=== PATIENT | female | born 2000 | race African-American/Black ===

== ENCOUNTER 2021-07-15 18:41 | Emergency (ER) | payer OTHER ==
[2021-07-15] MEDS ORDERED: Dicyclomine 20 MG/2 ML VIAL ONE (19:41)
[2021-07-15] MEDS ORDERED: Ondansetron ODT 4 MG TAB ONE (19:42)
[2021-07-15 20:04] LABS: Bilirubin Neg (Negative); Blood, Urine Negative (Negative); Clarity Clear (Clear); Glucose, Urine (Dipstick) Normal (Negative); Ketone, Urine Negative (Negative); Leukocyte Negative (Negative); Nitrite Negative (Negative); Protein, Urine (Dipstick) Negative (Neg-Trace); Specific Gravity, Urine 1.005 (1.002-1.036); Urobilinogen Normal mg/dL (Less than 2)
[2021-07-15 20:10] LABS: Pregnancy Test - Urine (BHCG) Negative (Negative); Pregu Control Background? CLEAR/WHITE (CLR/WHITE); Pregu Control Bar Appear? YES (CONTROL BAR); Specific Gravity 1.005 (1.002-1.036)
== END 2021-07-15 21:24 | disposition home or self-care (01) ==
LOC: CSHERS 18:41
DX: B34.9 Viral infection, unspecified (principal); R11.2 Nausea with vomiting, unspecified; I10 Essential (primary) hypertension; F17.210 Nicotine dependence, cigarettes, uncomplicated; E11.9 Type 2 diabetes mellitus without complications
CPT/HCPCS: 81003; 81025; 96372; 99284; J0500; Q0162

== ENCOUNTER 2021-10-03 09:16 | Emergency (ER) | payer OTHER ==
[2021-10-03] MEDS ORDERED: Ketorolac Tromethamine 30 MG/ML VIAL ONE (10:13)
== END 2021-10-03 10:50 | disposition home or self-care (01) ==
LOC: CSHERS 09:16
DX: H66.91 Otitis media, unspecified, right ear (principal); R05.9 Cough, unspecified; E11.9 Type 2 diabetes mellitus without complications; I10 Essential (primary) hypertension; F17.210 Nicotine dependence, cigarettes, uncomplicated
CPT/HCPCS: 71045; 96372; J1885

== ENCOUNTER 2021-10-04 15:16 | Emergency (ER) | payer OTHER | END 2021-10-04 16:20 | disposition home or self-care (01) | LOC: CSHERS 15:16 | DX: J35.9 Chronic disease of tonsils and adenoids, unspecified (principal); I10 Essential (primary) hypertension; E11.9 Type 2 diabetes mellitus without complications; F17.210 Nicotine dependence, cigarettes, uncomplicated; Z79.899 Other long term (current) drug therapy | CPT/HCPCS: 99282 ==

== ENCOUNTER 2022-03-31 02:05 | Emergency (ER) | payer OTHER ==
[2022-03-31] MEDS ORDERED: metroNIDAZOLE 500 MG TAB ONE (02:42)
[2022-03-31] MEDS ORDERED: Boostrix 0.5 ML (Tdap) VIAL (>/=7 yrs of age) ONE (02:42)
[2022-03-31] MEDS ORDERED: Doxycycline 100 MG CAP PO SCH (03:00)
== END 2022-03-31 03:00 | disposition home or self-care (01) ==
LOC: CSHERS 02:05
DX: S41.151A Open bite of right upper arm, initial encounter (principal); I10 Essential (primary) hypertension; E11.9 Type 2 diabetes mellitus without complications; F17.290 Nicotine dependence, other tobacco product, uncomplicated; W54.0XXA Bitten by dog, initial encounter
CPT/HCPCS: 90471; 90715; 99283

== ENCOUNTER 2023-03-03 09:14 | Emergency (ER) | payer MEDICAID, OTHER ==
[2023-03-03 09:59] LABS: Bilirubin Neg (Negative); Blood, Urine Negative (Negative); Glucose, Urine (Dipstick) Normal (Negative); Ketone, Urine Negative (Negative); Leukocyte Negative (Negative); Nitrite Negative (Negative); Protein, Urine (Dipstick) 15 mg/dl (Neg-Trace); Specific Gravity, Urine 1.015 (1.005-1.030)
[2023-03-03 10:23] LABS: Clarity Hazy (Clear)
[2023-03-03 10:24] LABS: Bacteria/HPF None Seen HPF (None Seen); CAUTI Indications for Culture Dysuria,urgency,freq; Mucous/LPF 1+ LPF (<2+); Pregnancy Test - Urine (BHCG) Negative (Negative); Pregu Control Background? CLEAR/WHITE (CLR/WHITE); Pregu Control Bar Appear? YES (CONTROL BAR); RBC/HPF None Seen HPF (0-3); Specific Gravity 1.015 (1.002-1.036); Squamous Epithelial 0-3 HPF (0-3); WBC/HPF None Seen HPF (0-3)
[2023-03-03 10:25] LABS: Urine Culture Reflex No No
[2023-03-03] MEDS ORDERED: cefTRIAXone (ROCEPHIN) 500 MG VIAL ONE (10:40)
[2023-03-03] MEDS ORDERED: Sterile Water 10 ML ONE (10:41)
[2023-03-03 17:08] LABS: Chlamydia by PCR, Vaginal Swab DETECTED (NotDetected); GC by PCR, Vaginal Swab DETECTED (NotDetected)
== END 2023-03-03 11:03 | disposition home or self-care (01) ==
LOC: CSHERS 09:14
DX: N93.9 Abnormal uterine and vaginal bleeding, unspecified (principal); I10 Essential (primary) hypertension; F17.290 Nicotine dependence, other tobacco product, uncomplicated; E11.9 Type 2 diabetes mellitus without complications
CPT/HCPCS: 81001; 81025; 87480; 87491; 87510; 87591; 87660; 96372; 99283; J0696

== ENCOUNTER 2023-10-24 00:33 | Emergency (ER) | payer MEDICAID ==
[2023-10-24 02:33] LABS: Bilirubin Neg (Negative); Blood, Urine 10 (Negative); Glucose, Urine (Dipstick) Normal (Negative); Ketone, Urine Negative (Negative); Leukocyte Negative (Negative); Nitrite Negative (Negative); Protein, Urine (Dipstick) Negative (Neg-Trace); Specific Gravity, Urine 1.015 (1.005-1.030)
[2023-10-24 02:46] LABS: Clarity Clear (Clear)
[2023-10-24 02:48] LABS: Bacteria/HPF Rare-Few HPF (None Seen); CAUTI Indications for Culture Acute Hematuria; Squamous Epithelial 0-3 HPF (0-3); WBC/HPF 0-3 HPF (0-3)
[2023-10-24 02:49] LABS: Urine Culture Reflex No No
[2023-10-24 02:57] LABS: Pregnancy Test - Urine (BHCG) Negative (Negative); Pregu Control Background? CLEAR/WHITE (CLR/WHITE); Pregu Control Bar Appear? YES (CONTROL BAR); Specific Gravity 1.015 (1.002-1.036)
[2023-10-24] MEDS ORDERED: Fluconazole 100 MG TAB PO SCH (03:15)
[2023-10-26 12:50] LABS: Chlamydia by PCR, Vaginal Swab Not Detected (NotDetected); GC by PCR, Vaginal Swab Not Detected (NotDetected)
== END 2023-10-24 04:15 | disposition home or self-care (01) ==
LOC: CSHERS 00:33
DX: R30.0 Dysuria (principal); R10.2 Pelvic and perineal pain; F17.290 Nicotine dependence, other tobacco product, uncomplicated; Z55.6 Problems related to health literacy
CPT/HCPCS: 81001; 81025; 87480; 87491; 87510; 87591; 87660; 99283